=== PATIENT | female | born 1955 | race Caucasian/White ===

== ENCOUNTER 2023-12-28 12:43 | Emergency (ER) | payer BC ==
[~2023-12-28] VITALS: Ht 160 cm; Wt 79.4 kg
[2023-12-28 12:48] VITALS: BP_SYST 154; PULSE 68; RESP 18; TEMP 97.8; O2SAT 95
[2023-12-28 13:59] LABS: PROTHROMBIN TIME 10.4 SECS (9.5-12.5)
[2023-12-28 14:02] LABS: ALANINE AMINOTRANSFERASE 26 U/L (12-78); ALBUMIN 3.2 g/dL (3.4-4.8); ANION GAP 7 (5-15); ASPARTATE AMINOTRANSFERASE 20 U/L (10-37); BASOPHILS % (AUTO) 0.2 % (0.0-2.0); BILIRUBIN,DIRECT 0.1 mg/dL (0.0-0.3); CALCIUM 8.4 mg/dL (8.4-11.0); CARBON DIOXIDE 27 mmol/L (23-29); CHLORIDE 108 mmol/L (98-107); CREATINE KINASE, TOTAL 137 U/L (26-192); EOSINOPHILS # (AUTO) 0.1 K/uL (0.0-0.4); EOSINOPHILS % (AUTO) 1.7 % (0.0-4.0); GFR AFRICAN AMERICAN 92 mL/min (>90); GLUCOSE 112 mg/dL (74-106); HEMATOCRIT 39.5 % (36-48); HEMOGLOBIN 13.3 g/dL (12.0-16.0); LYMPHOCYTES # (AUTO) 1.8 K/uL (1.0-5.5); MEAN CORPUSCULAR HEMOGLOBIN 28 pg (27-31); MEAN CORPUSCULAR HGB CONC 34 % (32-36); MEAN CORPUSCULAR VOLUME 82 fL (79.0-98.0); MONOCYTES # (AUTO) 0.5 K/uL (0.0-1.0); MONOCYTES % (AUTO) 9.8 % (1.7-9.3); NEUTROPHILS # (AUTO) 2.3 K/uL (1.8-7.7); NEUTROPHILS % (AUTO) 49.3 % (40.0-70.0); PLATELET COUNT (AUTO) 230 K/uL (130-430); POTASSIUM 3.9 mmol/L (3.5-5.1); RED BLOOD CELL COUNT(AUTO) 4.81 MIL/uL (4.2-6.2); RED CELL DISTRIBUTION WIDTH 13.9 % (9.0-15.0); SODIUM SERUM 142 mmol/L (136-145); TOTAL BILIRUBIN 0.4 mg/dL (0.0-1.0); TOTAL PROTEIN, SERUM 7.2 g/dL (6.4-8.3); UREA NITROGEN, BLOOD 12 mg/dL (8-21); WHITE BLOOD COUNT (AUTO) 4.7 K/uL (4.8-10.8)
[2023-12-28 14:07] LABS: GFR NON AFRICAN-AMERICAN 76 mL/min (>90)
[2023-12-28 14:32] LABS: BILIRUBIN,URINE NEGATIVE (NEGATIVE); BLOOD, URINE 1+ (NEGATIVE); CLARITY/URINE CLEAR (CLEAR); COLOR,URINE YELLOW (YELLOW); GLUCOSE,URINE NEGATIVE (NEGATIVE); KETONES,URINE NEGATIVE (NEGATIVE); LEUKOCYTE ESTERASE ,URINE NEGATIVE (NEGATIVE); NITRITE, URINE NEGATIVE (NEGATIVE); PROTEIN URINE NEGATIVE (NEGATIVE); UROBILINOGEN,URINE 0.2 (0.2-1.0)
[2023-12-28 14:48] LABS: BACTERIA,URINE RARE /HPF (None Seen); MUCUS,URINE None Seen /LPF (None Seen); RBC,URINE NONE SEEN /HPF (0-3); WBC,URINE NONE SEEN /HPF (0-3)
[2023-12-28] MEDS ORDERED: TRAM50TA2 PO (15:43)
[2023-12-28] MEDS ORDERED: ACET-2634 PO (15:43)
[2023-12-28 15:55] VITALS: BP_SYST 152; PULSE 59; RESP 18; TEMP 97.8; O2SAT 97
== END 2023-12-28 15:54 | disposition home or self-care (01) ==
LOC: SED 12:43
DX: G43.909 Migraine, unspecified, not intractable, without status migrainosus (principal); R07.89 Other chest pain; I10 Essential (primary) hypertension; R20.0 Anesthesia of skin; R41.0 Disorientation, unspecified; Z88.6 Allergy status to analgesic agent; Z88.8 Allergy status to other drugs, medicaments and biological substances; Z79.899 Other long term (current) drug therapy
CPT/HCPCS: 36415; 70450-TC; 71045; 80048; 80076; 81000; 81001; 81015; 82550; 84484; 85025; 85610; 85651; 85730; 93005; 99285